=== PATIENT | female | born 1995 | race American Indian/Alaskan Native ===

== ENCOUNTER 2021-02-13 22:41 | Emergency (ER) | payer SELFPAY ==
[2021-02-13 23:08] VITALS: BP 119/74
--- NOTE | 2021-02-14 00:20 | Emergency Department Report ---
ED Female HPI - General Chief complaint: Urogenital-Female Stated complaint: BURNING FREQUENT URINATION Source: patient Mode of arrival: Ambulatory Limitations: No Limitations - History of Present Illness Initial comments: 25-year-old -Hung[place] female with no past medical history presents to the emergency room for 3-day history of burning with urination, foul smell with urine. Patient admits to urinary frequency. She denies any vaginal discharge no vaginal bleeding. Last menstrual period was 01/29/2021. Patient denies any pelvic pain. MD Complaint: dysuria Onset/Timin -: days(s) Severity scale (0 -10): 0 Consistency: intermittent Improves with: none Worsens with: urination Are you Now?: No Last Menstrual Period: 02/26/21 EDC: 12/03/21 Associated Symptoms: dysuria. denies: vaginal discharge, nausea/vomiting, fever/chills, hematuria - Related Data Allergies Allergy/AdvReac Type Severity Reaction Status Date / Time No Known Allergies Allergy Unverified 02/13/21 23:57 ED Review of Systems ROS: Stated complaint: BURNING FREQUENT URINATION Other details as noted in HPI Comment: All other systems reviewed and negative ED Past Medical Hx - Past Medical History Previous Medical History?: No - Surgical History Past Surgical History?: No - Social History Smoking Status: Never Smoker Substance Use Type: None ED Physical Exam - General Limitations: No Limitations General appearance: alert, in no apparent distress - Head Head exam: Present: atraumatic, normocephalic - Eye Eye exam: Present: normal appearance - ENT ENT exam: Present: normal exam, mucous membranes moist - Neck Neck exam: Present: normal inspection, full ROM - GI/Abdominal GI/Abdominal exam: Absent: distended, tenderness - Extremities Exam Extremities exam: Present: normal inspection, full ROM - Back Exam Back exam: Present: normal inspection - Neurological Exam Neurological exam: Present: alert, oriented X3, normal gait - Psychiatric Psychiatric exam: Present: normal affect, normal mood - Skin Skin exam: Present: warm, dry, intact, normal color. Absent: rash ED Course Vital Signs 02/13/21 23:04 Temperature 98.4 F Pulse Rate 80 Respiratory 18 Rate Blood Pressure 119/74 O2 Sat by Pulse 97 Oximetry ED Medical Decision Making - Medical Decision Making 25-year-old -Hungarian female with no past medical history presents to the emergency room for 3-day history of burning with urination, foul smell with urine. Patient admits to urinary frequency. She denies any vaginal discharge no vaginal bleeding. Last menstrual period was 01/29/2021. Patient denies any pelvic pain. Urinalysis and urine test has been sent. Critical care attestation.: If time is entered above; I have spent that time in minutes in the direct care of this critically ill patient, excluding procedure time. ED Disposition Clinical Impression: Dysuria Disposition: DC- TO HOME OR SELFCARE Is pt being admited?: No Does the pt Need Aspirin: No Condition: Stable Instructions: Dysuria Additional Instructions: test is negative urinalysis is negative for any infection. Are recommend increasing your water intake. Follow-up with your TELE RN if any further concerns. Referrals: VENANCIO COVARRUBIAS MD [Primary Care Provider] - 3-5 Days Forms: Work/School Release Form(ED)
[2021-02-14 00:24] LABS: Bilirubin,Urine NEG (Negative); Blood,Urine NEG (Negative); Color,Urine Yellow (Yellow); Protein,Urine <15 mg/dL mg/dL (Negative); Urobilinogen,Urine < 2.0 mg/dL (<2.0)
[2021-02-14 00:49] LABS: HCG Qualitative,Urine Negative (Negative)
== END 2021-02-14 01:12 | disposition home or self-care (01) ==
LOC: ED 22:41
DX: R30.0 Dysuria (principal)
CPT/HCPCS: 81001; 81025

== ENCOUNTER 2021-02-14 18:05 | Emergency (ER) | payer SELFPAY ==
[2021-02-14 19:12] VITALS: BP 119/77
--- NOTE | 2021-02-14 19:14 | Emergency Department Report ---
Chief Complaint: Urogenital-Female Stated Complaint: STD EXPOSURE Time Seen by Provider: 02/14/21 19:12 - HPI History of Present Illness: Patient is a 25-year-old female presents emergency room for an STD panel. Patient reports that she has had intermittent mild dysuria and occasional urinary frequency for the last week. Patient denies any pelvic pain, vaginal pain, vaginal discharge, fever, nausea, vomiting, diarrhea, back pain, vaginal bleeding, vaginal odor, vaginal burning, vaginal itching. Patient was evaluated in the emergency department yesterday on 02/13/2021 and had a UA at that time which was within normal limits. Urine was negative. Patient was given appropriate resources and states that she has not followed up. She presents tonight for STD panel. She denies any past medical history. No allergies medications. Vitals are normal on exam: Non toxic appearing, no acute distress atraumatic, normocephalic normal appearance of the eyes, EOMI, no periorbital edema or ecchymosis moist mucus membranes No respiratory distress, no accessory muscle use A&O x4, no focal neuro deficit skin is warm, dry, intact Patient is presenting for STD panel She has no clinical signs of PID She had a UA performed in the emergency department yesterday which was within normal limits Patient be referred to the health department in a clinic in order to have a full STD panel performed Discussed strict return precautions Discussed the importance of follow-up and advised if she did not follow up it could put her at risk for PID or infertility, she verbalized understanding and states she will follow up at an outpatient clinic Medical screen examination performed there is no vaginal life or limb at this time - Exam Vital Signs: Vital Signs 02/14/21 18:23 Temperature 97.8 F Pulse Rate 83 Respiratory 16 Rate Blood Pressure 119/77 O2 Sat by Pulse 100 Oximetry MSE screening note: Focused history and physical exam performed. Due to findings the following was ordered: ED Disposition for MSE Clinical Impression: Concern about STD in female without diagnosis Disposition: Z-07 MED SCREENING EXAM-LEFT Is pt being admited?: No Does the pt Need Aspirin: No Condition: Stable Instructions: Safe Sex Additional Instructions: please follow up with a clinic or health department. have any partner tested and treated as well. avoid sexual intercourse. return to the emergency room for any new or worsening symptoms. walk in clinic: [facility] Address: [address] [place] [id number] Referrals: [facility] [Provider Group] - 2-3 Days [facility] [Outside] - 2-3 Days Time of Disposition: 19:13 Print Language: GUYANESE
== END 2021-02-14 19:55 | disposition left against medical advice (07) ==
LOC: ED 18:05
DX: Z20.2 Contact with and (suspected) exposure to infections with a predominantly sexual mode of transmission (principal); Z53.21 Procedure and treatment not carried out due to patient leaving prior to being seen by health care provider

== ENCOUNTER 2021-09-30 15:40 | Emergency (ER) | payer SELFPAY ==
[2021-09-30 15:51] VITALS: BP 112/57
[2021-09-30] MEDS ORDERED: ACETAMINOPHEN 500 MG TAB PO STA (16:26)
[2021-09-30] MEDS ORDERED: IBUPROFEN 800 MG TAB PO STA (16:26)
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
== END 2021-09-30 18:02 | disposition home or self-care (01) ==
LOC: ED 15:40
DX: M54.6 Pain in thoracic spine (principal); R51.9 Headache, unspecified; M25.551 Pain in right hip; M25.552 Pain in left hip; Z79.899 Other long term (current) drug therapy; V87.7XXA Person injured in collision between other specified motor vehicles (traffic), initial encounter; Y93.89 Activity, other specified; Y92.488 Other paved roadways as the place of occurrence of the external cause; Y99.8 Other external cause status
CPT/HCPCS: 99282